=== PATIENT | female | born 1995 | race African-American/Black ===

== ENCOUNTER 2019-08-03 12:02 | Emergency (ER) | payer OTHER, SELFPAY ==
--- NOTE | ~2019-08-03 | XR_ITS ---
XR elbow LT min 3V, XR forearm LT 2V 08/03/2019 12:21 Indication: Status post fall. Left arm pain after fall. Procedure: 4 views left elbow and 2 views left forearm Comparison: No prior studies for comparison. Findings: There is a nondisplaced radial head fracture. There is a joint effusion with displacement o f the ventral fat pad. No other fractures. No foreign bodies. Impression: 1: Nondisplaced radial head fracture with small joint effusion. Reviewed, dictated and finalized at location A. Impression: 1: Nondisplaced radial head fracture with small joint effusion. Impression: 1: Nondisplaced radial head fracture with small joint effusion.
[2019-08-03 12:05] VITALS: BP 151/100; PULSE 110; RESP 16; TEMP 37.1; O2SAT 100
--- NOTE | 2019-08-03 13:01 | ED.UPPEXIN ---
HPI - Extremity Injury (Upper) General Chief Complaint: Extremity Injury, Upper Stated Complaint: left elbow pain Time Seen by Provider: 08/03/19 12:10 History of Present Illness HPI narrative: Patient is a 24-year-old female who presents ER with left elbow injury. She was on a skateboard when she fell off falling directly on the elbow. She can perform range of motion exercises but has pain with pronation supination as well as extension at the elbow. Mild swelling. No numbness or tingling. Did not strike her head or lose consciousness. Related Data Allergies Allergy/AdvReac Type Severity Reaction Status Date / Time Sulfa (Sulfonamide Allergy Unknown Verified 08/03/19 12:08 Antibiotics) Review of Systems Musculoskeletal: Musculoskeletal: Reports arthralgias and Reports joint swelling Neurologic: Denies syncope, Denies focal weakness and Denies numbness PMFSH Past Medical History Medical History (Updated 08/03/19 @ 13:06 by Panfilo Murguia MD) No pertinent past medical history Surgical History Surgical History (Updated 08/03/19 @ 13:02 by Panfilo Murguia MD) No pertinent past surgical history Social History Social History (Updated 08/03/19 @ 13:02 by Panfilo Murguia MD) Smoking status: Never smoker Gender identity (if verbalized by the patient): Female Exam Narrative: Exam Narrative: GENERAL: Well-appearing, well-nourished, and in no acute distress. HEAD: Normocephalic, atraumatic. HEART: Regular rate and rhythm. Normal peripheral pulses. EXTREMITIES: Normal range of motion. Tender to palpation to the left elbow at the radial head. SKIN: Warm, dry, no rash. NEURO: Alert and oriented x3. PSYCH: Normal mood and affect. Course Course Emergency Course: Patient informed of results. Sling for comfort. Recommend follow-up with PCP but also give Ortho. Discussed immobilization with sling and then early range of motion. Vital Signs Vital signs: Vital Signs Temperature 98.7 F 08/03/19 12:05 Pulse Rate 110 H 08/03/19 12:05 Respiratory Rate 16 08/03/19 12:05 Blood Pressure 151/100 H 08/03/19 12:05 Pulse Oximetry 100 08/03/19 12:05 Temperature 98.7 F 08/03/19 12:05 Pulse Rate 110 H 08/03/19 12:05 Respiratory Rate 16 08/03/19 12:05 Blood Pressure 151/100 H 08/03/19 12:05 Pulse Oximetry 100 08/03/19 12:05 MDM - Extremity Injury (Upper) Imaging Data Radiologist's impression: ITS Impressions Elbow X-Ray 08/03/19 12:23 Impression: 1: Nondisplaced radial head fracture with small joint effusion. Forearm X-Ray 08/03/19 12:23 Impression: 1: Nondisplaced radial head fracture with small joint effusion. Discharge Plan Discharge Clinical Impression: Fracture of head of left radius Patient Disposition: Home, Self-Care Condition: Stable Instructions: Elbow Fracture (ED), How to Use a Sling (ED) Additional Instructions: Follow-up with your primary care doctor or with orthopedic surgeon listed below. You will likely need to be in a sling for 1 to 2 weeks with early return to range of motion as your pain becomes more tolerable. Take Sunset as needed for breakthrough pain. Otherwise take Tylenol or ibuprofen. Prescriptions: New hydrocodone-acetaminophen 5-325 mg tablet 1 tablet PO Q6H PRN (Reason: pain) Qty: 10 RF: 0 Follow-up/Referrals: Jhonny Franz MD [Physician] - 1 Week UNKNOWN,DOCTOR [Primary Care Provider] -
== END 2019-08-03 13:34 | disposition home or self-care (01) ==
PROVIDERS: Emergency Provider Emergency Medicine
DX: S52.125A Nondisplaced fracture of head of left radius, initial encounter for closed fracture (principal); V00.131A Fall from skateboard, initial encounter; Y93.51 Activity, roller skating (inline) and skateboarding
CPT/HCPCS: 73080; 73090; 99284; A4565

== ENCOUNTER 2024-01-22 10:11 | Outpatient (CLI) | payer OTHER, SELFPAY | END 2024-01-22 10:12 | disposition home or self-care (01) | PROVIDERS: PCP Internal Medicine; Visit Provider Obstetrics & Gynecology | DX: N94.6 Dysmenorrhea, unspecified (principal) | CPT/HCPCS: 36415; 86850; 86900; 86901 ==

== ENCOUNTER 2024-01-26 01:30 | Day surgery (SDC) | payer OTHER, SELFPAY ==
[2024-01-10 09:23] VITALS: BMI 30.8
--- NOTE | 2024-01-10 09:33 | PC.NURSE ---
Addendum entered by Don Vázquez RN 01/19/24 12:29: Surgery date moved to 01-26-2024, arrive at 10am for surgery at 1200. Original Note: Report to the Outpatient Waiting Room, entrance under the green pavilion located off [facility], at time _0730_ on date _[id number]_. Planned Procedure Time: _0930_.? Time changes happen often and if your time is changed the preop area will call you the afternoon before. - You and your visitor will be asked to self-screen and do not enter if you have any COVID symptoms. Please call surgeon if you need to reschedule. - A mask is optional within the hospital at this time. Patients may have clear liquids (water, carbonated beverages, clear teas, apple juice) until 3 hours prior to surgery with a maximum of 20 ounces. - No food from midnight until time of surgery and no smoking. This includes no chewing gum, candy or mints. Take only the following medications with a SIP of water on the morning of surgery: ____None____ DO NOT STOP ANY OF YOUR OTHER PRESCRIPTION MEDICATIONS PRIOR TO SURGERY EXCEPT THE FOLLOWING Medications to discontinue per physician ____None____ Please no make-up, nail telugu, hairspray, perfume, deodorant, or body powder the day of surgery.? No jewelry (including any body piercings) or valuables the day of surgery, leave them at home.? Please take a shower or bath the night before, or the morning of, surgery with an antibacterial soap.? Wear comfortable, loose fitting clothing.? - Jewelry must be removed prior to entering the operating room.? Rings and piercings that are not removed may be cut off. - The hospital will not accept responsibility for valuables.? - Please leave all valuables, including medications, at home the day of surgery. If you are going home after surgery, a licensed skidder driver must drive you home.? - NO public transportation without another adult if you receive anesthesia. - We recommend that an adult stay with you for 24 hours following discharge. - We also recommend that you do not drive, make important decision, drink alcoholic beverages, or take any drugs that were not prescribed by your health care provider for at least 24 hours after your discharge time. Follow any additional instructions given to you from your surgeon. Telephone instructions given to _Cristobal_and asked if any additional questions and then verbalized understanding. Patient advised to call surgeon office or pre surgery nurse liaison [phone] if any additional questions.
--- NOTE | 2024-01-23 12:02 | PM.IMHP ---
H&P: HPI History of Present Illness Date/Time: 01/23/24 12:02 Chief Complaint: The patient complaining of severe pelvic pain and dysmenorrhea Narrative: 28-year-old female for diagnostic laparoscopy secondary to pelvic pain and dyspareunia as well as dysmenorrhea her ultrasound showed possible old polycystic ovaries. She has a family history of endometriosis she has not done well with oral contraceptives for the past she agrees and asked for polyp laparoscopy risks and benefits reviewed including but not exclusive of , aspiration pneumonia, bleeding, transfusion, perforation injury to bowel, bladder, ureters, or other internal organs with need for open laparotomy. She had all questions answered and asked to proceed Review of Systems Neurologic: Denies syncope, Denies focal weakness and Denies numbness PMFSH Past Medical History Medical History No pertinent past medical history Surgical History Surgical History No pertinent past surgical history Social History Social History Years smoked: 4 Smoking status: Former smoker Tobacco type: cigarettes Smoking end date: 01/09/19 Additional smoking assessment comments: Says was a pack every 2 weeks. Alcohol intake: current Drinks per week: 2 Substance use: former Substance use type: marijuana Other substance usage details: Been 2 months Living arrangements: with family Gender identity (if verbalized by the patient): Female Spiritual care concerns: No Meds Home Medications and Allergies Home Medications ?Medication ?Instructions ?Recorded ?Confirmed ?Type cetirizine 10 mg tablet (Zyrtec) 10 mg PO DAILY 01/10/24 01/19/24 History Allergies Allergy/AdvReac Type Severity Reaction Status Date / Time Sulfa (Sulfonamide Allergy Unknown Verified 01/19/24 12:31 Antibiotics) Exam Const: General: cooperative, healthy appearing and comfortable Orientation/consciousness: oriented to person, oriented to place and oriented to time Resp: Effort & Inspection: normal respiratory effort Cardio: Rate: regular rate Rhythm: regular rhythm Heart sounds: S1 normal heart sound present and S2 normal heart sound present GI: Inspection: normal to inspection : External Female Exam: normal external appearance Speculum Exam - Vagina: normal appearance of the vagina Speculum Exam - Cervix: normal appearance of the cervix Bimanual exam- vagina & uterus: enlarged Bimanual Exam- Adnexa, other: tender bilaterally Assessment and Plan Assessment and plan (1) Pelvic pain: Code(s): R10.2 - Pelvic and perineal pain Status: Acute Plan Proceed with diagnostic laparoscopy
[2024-01-26] VITALS (11 sets, daily range): BP systolic 128–152; BP diastolic 88–99; PULSE 72–97; RESP 12–28; TEMP 36.1–37; O2SAT 95–100
--- NOTE | 2024-01-26 01:07 | WPDHPUPDATE1 ---
History and Physical Update Update Date/Time: 01/26/24 01:07 History and Physical has been reviewed, including an updated exam of the patient. There are NO changes in the patient's condition. Risks, benefits, and alternatives have been discussed and questions answered. Patient agrees to proceed with procedure.
--- NOTE | 2024-01-26 10:39 | WPDANESEPPF ---
Anes - Initial Pre Proc Eval Procedure: Operation Date: 01/26/24 12:00 Proposed Procedures p Diagnostic Laparoscopy - Graett Reed MD Date/Time: 01/26/24 10:39 Surgeon: Garett Reed MD Pre Op Diagnosis: Pelvic Pain, Dysmenorrhea, Endometriosis Patient Data Age: 28 Gender: F Height: 1.65 m Weight: 84 kg Allergies Allergy/AdvReac Type Severity Reaction Status Date / Time Sulfa (Sulfonamide Allergy Unknown Verified 01/19/24 12:31 Antibiotics) Home Medications ?Medication ?Instructions ?Recorded ?Confirmed ?Type cetirizine 10 mg tablet (Zyrtec) 10 mg PO DAILY 01/10/24 01/19/24 History hydrocodone 5 mg-acetaminophen 325 1 tablet PO Q4H PRN pain #20 tabs 01/26/24 Rx mg tablet Patient hx anesthesia problems: none Family hx anesthesia problems: none Results Review: All pre-operative results and documents have been reviewed as part of the pre-operative evaluation. [facility] Past Medical History Medical History (Updated 01/26/24 @ 10:40 by Garett Patterson MD) Obesity Surgical History Surgical History No pertinent past surgical history Social History Social History Years smoked: 4 Smoking status: Former smoker Tobacco type: cigarettes Smoking end date: 01/09/19 Additional smoking assessment comments: Says was a pack every 2 weeks. Alcohol intake: current Drinks per week: 2 Substance use: former Substance use type: marijuana Other substance usage details: Been 2 months Living arrangements: with family Gender identity (if verbalized by the patient): Female Spiritual care concerns: No Anes - Eval Final PreProcedure Day of Procedure 01/26/24 10:39 Patient weight: obese Heart: regular rate and rhythm Lungs: clear to auscultation Airway: Mallampati scale class II Neurological: alert and oriented Last oral intake: >/= 8 hours ASA classification: II Emergent: no Anesthetic plan: proceed Anesthesia type and monitoring: general ETT and standard monitoring Results Review: All pre-operative results and documents have been reviewed as part of the pre-operative evaluation. Informed Consent: The patient's anesthetic plan and its attendant risks and benefits were discussed with the patient/family/POA. Questions were solicited and answers provided to the satisfaction of the patient/family/POA.
[2024-01-26] MEDS: LACTATED RINGERS 1,000 ML 30 ML IV CONT (11:45)
[2024-01-26] MEDS: ACETAMINOPHEN 500 MG TABLET 1000 MG PO (11:50)
[2024-01-26] MEDS: KETOROLAC 15 MG/ML VIAL (*BKC) IV PUSH (11:50)
[2024-01-26 12:07] LABS: BEDSIDEPREGUCG Negative (Negative)
--- NOTE | 2024-01-26 12:24 | P.OP_ITS ---
Procedure Note - Detailed Date of Procedure 01/26/24 Pre-op Diagnosis Pelvic Pain, Dysmenorrhea, Endometriosis Post-op Diagnosis Same Procedure Performed Laparoscopy with destruction of endometriosis and bilateral cysts Surgeon Garett Reed MD Anesthesia General Indications 28-year-old female with severe pelvic pain dyspareunia Findings serosanguineous fluid cul-de-sac. Small endometriosis and powder burn formed cul-de-sac. Simple bilateral ovarian cyst. Normal-appearing appendix gallbladder edge. Description of Procedure Patient was prepped draped in the normal sterile fashion placed in the dorsal lithotomy position. General tracheal anesthesia weighted speculum placed posterior fornix vagina. The anterior lip of the cervix grasped with a single- tooth tenaculum. Minor's cannula inserted the cervix and attached to the single-tooth to be used later for uterine manipulation. The bladder was then drained of clear urine about 500cc. The weighted speculum was removed removed. The gloves were changed. A supraumbilical incision made the Veress needle passed in the abdomen. Abdomen filled with CO2 gas [id number]. 5mm trocar advanced under direct visualization assuring no injury patient placed in Trendelenburg and a suprapubic incision made. The 5mm trocar advanced under direct visualization assuring no injury. Who is about 10cc of serosanguineous fluid this was suctioned and removed after irrigation. Small area of endometriosis was seen in the cul-de-sac and this was cauterized at 35 w per 2nd with monopolar cautery bilaterally the ovaries had simple ovarian cyst and these were opened in linear fashion and drained of clear fluid. Photo documentation was taken of the rest of the pelvis. The lower site removed. The gas removed from the abdomen. The upper site removed. The incisions closed with 4-0 Monocryl glue. Patient went to recovery in satisfactory condition. All sponge, needle, instrument counts were correct there were no immediate complications Estimated Blood Loss 5 Drains No Packing No Pathology None sent Complications No immediate complications Condition Stable Disposition PACU
[2024-01-26] MEDS: fentaNYL CITRATE INJ (*CRX) 100 MCG/2 ML VIAL 25 MCG IV PUSH ×6 (13:04→14:30)
[2024-01-26] MEDS: oxyCODONE HCL (*CRX) 5 MG TAB IR PO (14:25)
--- NOTE | 2024-01-26 16:19 | SUR.PHASEII ---
1530 PATIENT AND FAMILY ASKED TO HAVE TIME TO TALK AMONGST THEMSELVES.
== END 2024-01-26 16:21 | disposition home or self-care (01) ==
PROVIDERS: PCP Internal Medicine; Visit Provider Obstetrics & Gynecology
PROC: (CPT 49320; principal; 2024-01-26 12:00)
DX: N83.292 Other ovarian cyst, left side (principal); N83.291 Other ovarian cyst, right side; N80.8 Other endometriosis; N94.6 Dysmenorrhea, unspecified; Z87.891 Personal history of nicotine dependence
CPT/HCPCS: 58662; A9270; J1100; J1885; J2003; J2250; J2405; J3010; J7120